=== PATIENT | male | born 1965 | race Caucasian/White ===

== ENCOUNTER 2023-11-04 06:34 | Emergency (ER) | payer BC ==
[2023-11-04] MEDS: Aspirin 81 MG Tab.Chew PO SCH (06:47)
[2023-11-04] MEDS: Aspirin 81 MG Tab.EC ONE (06:48)
[2023-11-04 06:51] LABS: BASOPHILS PERCENT AUTO 0.2 % (0.0-1.0); EOSINOPHILS ABSOLUTE AUTO 0.1 K/mm3 (0.0-0.4); EOSINOPHILS PERCENT AUTO 1.1 % (0.0-6.0); HEMATOCRIT 50.6 % (42.0-52.0); HEMOGLOBIN 16.4 gm/dl (14.0-18.0); IMMATURE GRAN ABSOLUTE AUTO 0.02 K/mm3 (0.00-0.05); IMMATURE GRAN PERCENT AUTO 0.2 % (0.0-0.4); LYMPHOCYTES ABSOLUTE AUTO 1.2 K/mm3 (1.0-4.8); LYMPHOCYTES PERCENT AUTO 14.3 % (24.0-44.0); MEAN CORPUSCULAR HEMOGLOBIN 28.7 pg (28.0-32.0); MEAN CORPUSCULAR HGB CONC 32.4 g/dl (32.0-36.0); MEAN CORPUSCULAR VOLUME 88.5 fl (83.0-99.0); MEAN PLATELET VOLUME 11.7 fl (9.4-12.4); MONOCYTES ABSOLUTE AUTO 0.7 K/mm3 (0.0-0.8); MONOCYTES PERCENT AUTO 8.1 % (0.0-8.0); NEUTROPHILS ABSOLUTE AUTO 6.3 K/mm3 (1.8-7.7); NEUTROPHILS PERCENT AUTO 76.1 % (41.0-71.0); PLATELET COUNT,PLT 235 K/mm3 (150-400); RED BLOOD CELL COUNT 5.72 M/mm3 (4.52-5.90); WHITE BLOOD CELL COUNT,WBC 8.27 K/mm3 (3.9-11.3)
[2023-11-04] MEDS: Famotidine 20 MG/2 ML SDV IVPUSH ONE (06:53)
[2023-11-04] MEDS: Aluminum Hydroxide/Magnesium Hydroxide/Simethicone Susp 30 ML Cup PO ONE (06:53)
[2023-11-04 07:17] LABS: ALBUMIN 3.9 g/dl (3.4-5.0); ANION GAP 14.3 (5-15); BILIRUBIN TOTAL 0.4 mg/dL (0.2-1.0); BUN/CREATININE RATIO 13.8 (14-18); CALCIUM 9.2 mg/dL (8.5-10.1); CREATININE 1.3 mg/dL (0.7-1.3); EST CRCL DRUG DOSING (CG) 63.95 mL/min; POTASSIUM,K 4.3 mEq/L (3.5-5.1); PROTEIN TOTAL,TP 7.8 g/dl (6.4-8.2)
[2023-11-04] MEDS: Hyoscyamine 0.125 MG Tab.SL SL ONE ×2 (08:01→08:08)
[2023-11-04] MEDS: Metoclopramide 10 MG/2 ML SDV IVPUSH ONE (08:01)
[2023-11-04] MEDS: HYDROmorphone 0.5 MG/0.5 ML Syringe IVPUSH ONE (08:03)
[2023-11-04] MEDS: hydrALAZINE 20 MG/ML SDV IVPUSH ONE (09:02)
== END 2023-11-04 09:08 | disposition critical access hospital (66) ==
LOC: JD.ED 06:34
DX: R07.89 Other chest pain (principal); K44.9 Diaphragmatic hernia without obstruction or gangrene; K21.9 Gastro-esophageal reflux disease without esophagitis; I10 Essential (primary) hypertension; Z79.899 Other long term (current) drug therapy
CPT/HCPCS: 36415; 71045; 80053; 84484; 85025; 93005; 96374; 96375; 99285; A9270; J0360; J1170; J2765; J3490; 93010